=== PATIENT | male | born 1955 | race Caucasian/White ===

== ENCOUNTER 2019-01-23 07:36 | Day surgery (SDC) | payer OTHER ==
[~2019-01-23] VITALS: Ht 188 cm; Wt 104.3 kg
[~2019-01-23 07:36] MED LIST: ASPI81TA26 PO; ATOR40TA75 PO; B-122500 PO; CARV6.25 PO; EZET10TA21 PO; LIDOCAINE 2% INJ 100 MG/5 ML SDV (FOR ANES.) As Ordered ONE; LOSA50TA88 PO; MECL-86 PO; MOTR200T4; NITR0.4S14 SL; NO ITAB PO; NS 1,000 ML IV ONE; PROPOFOL 200 MG/20 ML VIAL As Ordered ONE; ZOCO40TA
[2019-01-23] MEDS ORDERED: LIDOCAINE 2% INJ 100 MG/5 ML SDV (FOR ANES.) As Ordered ONE (07:52)
[2019-01-23] MEDS ORDERED: PROPOFOL 200 MG/20 ML VIAL As Ordered ONE (07:52)
--- NOTE | 2019-01-23 09:15 | ROOR ---
Patient Name: Yuri Figueroa Procedure Date: 01/23/2019 8:55 AM Date of : 1955 Age: 63 Room: [facility] Gender: Male Note Status: Finalized Procedure: Total Colonoscopy to Cecum Indications: Screening for colorectal malignant neoplasm Providers: Alvin Maldonado MD Referring MD: Raheel Haney Requesting Provider: Medicines: Monitored Anesthesia Care Complications: No immediate complications. Procedure: Pre-Anesthesia Assessment: - The heart rate, respiratory rate, oxygen saturations, blood pressure, adequacy of pulmonary ventilation, and response to care were monitored throughout the procedure. The Colonoscope was introduced through the anus and advanced to the cecum, identified by appendiceal orifice and ileocecal valve. The colonoscopy was performed without difficulty. The patient tolerated the procedure well. The quality of the bowel preparation was excellent. Findings: The perianal and digital rectal examinations were normal. Non-bleeding internal hemorrhoids were found during retroflexion. The hemorrhoids were small and Grade I (internal hemorrhoids that do not prolapse). Multiple small and large-mouthed diverticula were found in the recto-sigmoid colon, sigmoid colon and descending colon. The exam was otherwise without abnormality on direct and retroflexion views. Impression: - Non-bleeding internal hemorrhoids. - Diverticulosis in the recto-sigmoid colon, in the sigmoid colon and in the descending colon. - The examination was otherwise normal on direct and retroflexion views. - No specimens collected. - The exam was otherwise normal to the cecum. Recommendation: - Patient has a contact number available for emergencies. The signs and symptoms of potential delayed complications were discussed with the patient. Return to normal activities tomorrow. Written discharge instructions were provided to the patient. - High fiber diet. - Discharge patient to home. - Continue present medications. - Repeat colonoscopy in 10 years for screening purposes. - Return to referring physician. - The findings and recommendations were discussed with the patient's family. Alvin Maldonado MD Alvin Maldonado MD 01/23/2019 9:15:07 AM Electronically signed by Alvin Maldonado MD Number of Addenda: 0 Note Initiated On: 01/23/2019 8:55 AM Estimated Blood Loss: Estimated blood loss: none.
[2019-01-23 09:40] VITALS: BP 148/95
== END 2019-01-23 10:00 | disposition home or self-care (01) ==
LOC: M OPP 07:36
PROVIDERS: ATTEND Internal Medicine Gastroenterology
DX: Z12.11 Encounter for screening for malignant neoplasm of colon (principal); K64.0 First degree hemorrhoids; K57.30 Diverticulosis of large intestine without perforation or abscess without bleeding; G47.30 Sleep apnea, unspecified; Z79.82 Long term (current) use of aspirin; Z79.899 Other long term (current) drug therapy; Z88.6 Allergy status to analgesic agent; Z95.5 Presence of coronary angioplasty implant and graft

== ENCOUNTER → 2020-03-23 | Outpatient (CLI) | payer OTHER ==
[~2020-03-23] MED LIST changes: -LIDOCAINE 2% INJ 100 MG/5 ML SDV (FOR ANES.) As Ordered ONE; -NS 1,000 ML IV ONE; -PROPOFOL 200 MG/20 ML VIAL As Ordered ONE
--- NOTE | 2020-03-23 11:33 | REP ---
INDICATION: CALUDICATION. COMPARISON: None. TECHNIQUE: Bilateral lower extremity arterial Doppler ultrasound. FINDINGS: Ankle brachial indices are normal measured at 1.1 on the right and 0.9 on the left. Moderate bilateral arterial plaque is seen. A right profundal femoral artery stenosis is observed. No other stenosis or occlusion is seen. Relatively normal triphasic and biphasic arterial Doppler waveforms are seen. Right lower extremity arterial Doppler velocity chart: Right BUTTON TACKER PSV 79 cm/S Profundal 173 Proximal SFA 102 Mid SFA 64 Distal SFA 80 Popliteal 70 Proximal TODD 36 Tibial-peroneal trunk 76 Proximal ALGORITHM DEVELOPER 61 Distal ALGORITHM DEVELOPER 78 Distal TODD 12 Left lower extremity arterial Doppler velocity chart: Left BUTTON TACKER PSV 761 cm/S Profundal 54 Proximal SFA 93 Mid SFA 69 Distal SFA 71 Popliteal 52 Proximal TODD 37 Tibial-peroneal trunk 61 Proximal ALGORITHM DEVELOPER 57 Distal ALGORITHM DEVELOPER 60 Distal TODD 47 IMPRESSION: Atherosclerotic plaquing as above. 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 No other significant stenosis or occlusion is identified. <Electronically signed by Kevin Rankin > 03/23/20 0753
== END ==
LOC: M RAD 09:25
PROVIDERS: ATTEND Family Medicine
DX: I70.213 Atherosclerosis of native arteries of extremities with intermittent claudication, bilateral legs (principal)